=== PATIENT | male | born 1985 | race Caucasian/White ===

== ENCOUNTER 2016-09-26 19:04 | Inpatient (IN) | payer OTHER ==
[~2016-09-26] VITALS: Ht 185.4 cm; Wt 114.6 kg
[2016-09-26] VITALS (70 sets, daily range): BP systolic 136; BP diastolic 90; PULSE 103; TEMP 98; O2SAT 83–99
[2016-09-26] MEDS ORDERED: PRILOSEC 20MG20 MG PO (19:12)
[2016-09-26] MEDS ORDERED: EFFE25TA PO (19:12)
[2016-09-26] MEDS ORDERED: DESYREL 50MG50 MG PO (19:12)
[2016-09-26 19:22] LABS: BASO # 0.1 (0.0-0.2); BASO % 0.9 % (0.0-2.0); EOS # 0.1 (0.0-0.7); GRAN % 52.4 % (42.2-75.2); HEMATOCRIT 48.8 % (42.0-52.0); HEMOGLOBIN 17.3 g/dl (13.5-18.0); LYMPH # 3.1 (1.2-3.4); LYMPH % 40.6 % (20.0-51.0); MEAN CELL VOLUME 82 fl (80.0-100.0); MEAN CORPUSCULAR HEMOGLOBIN 29 pg (27.0-31.0); MEAN CORPUSCULAR HGB CONC 36 g/dl (33.0-37.0); MEAN PLATELET VOLUME 9.2 fl (7.4-10.4); MONO # 0.4 (0.1-0.6); MONO % 4.8 % (1.7-9.3); PLATELET COUNT 309 K/mm3 (130-400); RED BLOOD COUNT 5.93 M/mm3 (4.20-5.60); REDCELL DISTRIBUTION WIDTH-CV 12.6 % (11.5-14.5); WHITE BLOOD COUNT 7.7 K/mm3 (4.8-10.8)
[2016-09-26 19:39] LABS: ADJUSTED CALCIUM 8.2 mg/dL (8.4-10.2); ALBUMIN 4.4 gm/dL (3.5-5.0); BILIRUBIN,TOTAL 0.9 mg/dL (0.0-1.0); CALCIUM 8.5 mg/dL (8.4-10.2); CREATININE, serum 0.89 mg/dL (0.66-1.25); POTASSIUM 3.8 mmol/L (3.4-5.0); TOTAL PROTEIN 8.1 gm/dL (6.4-8.2)
[2016-09-26 22:48] LABS: INR 1.1 (0.8-3.0); PROTHROMBIN TIME 11.9 SECONDS (9.7-12.8)
[2016-09-26 22:51] LABS: PARTIAL THROMBOPLASTIN TIME 34.1 SECONDS (26.0-37.0)
[2016-09-27] VITALS (843 sets, daily range): BP systolic 118–153; BP diastolic 66–88; PULSE 51–119; TEMP 97.5–98.2; O2SAT 86–100
[2016-09-27] MEDS ORDERED: MELAT3MGTAB PO (10:48)
[2016-09-27] MEDS ORDERED: PRILOSEC 20MG20 MG PO (10:49)
[2016-09-27] MEDS ORDERED: EFFEXOR XR75 MG/CAP PO (10:50)
[2016-09-27] MEDS ORDERED: WELLBUTRIN XL300 M1 PO (10:51)
[2016-09-27] MEDS ORDERED: BUSPAR DIVIDOSE15 MG PO (10:51)
[2016-09-27 15:20] LABS: PH 6 (5-8); SQUAMOUS EPITHELIAL None Seen /hpf; URINE APPEARANCE Clear; URINE BACTERIA None Seen /hpf; URINE BILIRUBIN Negative (NEGATIVE); URINE BLOOD Negative (NEGATIVE); URINE COLOR Yellow; URINE GLUCOSE Negative (NEGATIVE); URINE KETONE 1+ (NEGATIVE); URINE RBC 0-2 /hpf; URINE WBC 0-2 /hpf
[2016-09-27 15:25] LABS: AMPHETAMINE URINE NEGATIVE; BARBITURATES URINE NEGATIVE; BENZODIAZEPINES URINE POSITIVE; BUPRENORPHINE URINE NEGATIVE; METHADONE URINE NEGATIVE; OPIATES URINE NEGATIVE; OXYCODONE URINE NEGATIVE; PHENCYCLIDINE URINE NEGATIVE; PROPOXYPHENE URINE NEGATIVE; THC CANNABINOIDS URINE POSITIVE
[2016-09-28] VITALS (10 sets, daily range): BP systolic 109–156; BP diastolic 59–88; PULSE 52–82; TEMP 97.7–99.5
[2016-09-29] VITALS (10 sets, daily range): BP systolic 133–173; BP diastolic 67–97; PULSE 47–91; TEMP 97.6–98.4
[2016-09-29 07:35] LABS: ALBUMIN 3.3 gm/dL (3.5-5.0); BILIRUBIN,TOTAL 1.2 mg/dL (0.0-1.0); CALCIUM 8.4 mg/dL (8.4-10.2); CREATININE, serum 0.89 mg/dL (0.66-1.25); POTASSIUM 3.4 mmol/L (3.4-5.0); TOTAL PROTEIN 6.1 gm/dL (6.4-8.2)
[2016-09-30 02:02] VITALS: BP 133/65; PULSE 98; TEMP 97.6
[2016-09-30 04:15] VITALS: BP 140/63; PULSE 53; TEMP 98.1
[2016-09-30 06:01] VITALS: BP 137/70; PULSE 50; TEMP 98.2
[2016-09-30 08:49] VITALS: BP 169/103; PULSE 65; TEMP 97.8
[2016-09-30 10:03] VITALS: BP 180/102; PULSE 56
== END 2016-09-30 10:46 | disposition home or self-care (01) | DRG 897 ==
LOC: COL.ER 19:04 → ICU 21:41 → COL.ER 21:41 → ICU 21:41 → MEDICAL 09-27 09:45 → ICU 09-27 20:45 → MEDICAL 09-30 10:46
PROVIDERS: Emergency Medicine; Nurse Practitioner Family
DX: F10.129 Alcohol abuse with intoxication, unspecified (principal); F33.1 Major depressive disorder, recurrent, moderate; F43.10 Post-traumatic stress disorder, unspecified; F17.220 Nicotine dependence, chewing tobacco, uncomplicated; G47.00 Insomnia, unspecified; F41.9 Anxiety disorder, unspecified; Y90.6 Blood alcohol level of 120-199 mg/100 ml
CPT/HCPCS: 90791-AI; 99223-AI; 99233-AI; 99239; J1644; J2060; J7030

== ENCOUNTER 2016-12-07 19:34 | Inpatient (IN) | payer OTHER ==
[2016-12-07] VITALS (94 sets, daily range): BP systolic 151; BP diastolic 96; PULSE 102; TEMP 97.8; O2SAT 87–99
[~2016-12-07] VITALS: Ht 185.4 cm; Wt 115.3 kg
[~2016-12-07 19:34] MED LIST: BUSPAR DIVIDOSE15 MG PO; DESYREL 50MG50 MG PO; EFFE25TA PO; EFFEXOR XR75 MG/CAP PO; MELAT3MGTAB PO; PRILOSEC 20MG20 MG PO; WELLBUTRIN XL300 M1 PO
[2016-12-07 20:55] LABS: BASO # 0.1 (0.0-0.2); BASO % 0.6 % (0.0-2.0); EOS # 0.2 (0.0-0.7); EOS % 2.1 % (0-4.0); GRAN # 4.9 (1.4-6.5); GRAN % 50.7 % (42.2-75.2); LYMPH # 3.8 (1.2-3.4); LYMPH % 39.4 % (20.0-51.0); MEAN CELL VOLUME 81 fl (80.0-100.0); MEAN CORPUSCULAR HGB CONC 36 g/dl (33.0-37.0); MONO # 0.7 (0.1-0.6); PLATELET COUNT 427 K/mm3 (130-400); RED BLOOD COUNT 6.63 M/mm3 (4.20-5.60); REDCELL DISTRIBUTION WIDTH-CV 12.6 % (11.5-14.5); WHITE BLOOD COUNT 9.6 K/mm3 (4.8-10.8)
[2016-12-07 20:56] LABS: HEMATOCRIT 53.9 % (42.0-52.0); HEMOGLOBIN 19.3 g/dl (13.5-18.0); MEAN CORPUSCULAR HEMOGLOBIN 29 pg (27.0-31.0)
[2016-12-07 21:08] LABS: ACETAMINOPHEN < 10 ug/mL (10-30); ADJUSTED CALCIUM 8.4 mg/dL (8.4-10.2); ALANINE AMINOTRANSFERASE 57 U/L (21-72); ALBUMIN 4.6 gm/dL (3.5-5.0); ALKALINE PHOSPHATASE 110 U/L (50-136); ANION GAP 18 mmol/L (7-16); BILIRUBIN,TOTAL 0.8 mg/dL (0.0-1.0); BLOOD UREA NITROGEN 11 mg/dL (9-20); CALCIUM 8.9 mg/dL (8.4-10.2); CARBON DIOXIDE 23 mmol/L (22-30); CHLORIDE 104 mmol/L (98-107); CREATININE, serum 0.95 mg/dL (0.66-1.25); GLUCOSE 108 mg/dL (74-106); POTASSIUM 3.8 mmol/L (3.4-5.0); SALICYLATE < 1.0 mg/dL; SODIUM 145 mmol/L (137-145); TOTAL PROTEIN 8.5 gm/dL (6.4-8.2)
[2016-12-08] VITALS (877 sets, daily range): BP systolic 135–166; BP diastolic 72–96; PULSE 65–97; TEMP 97.2–98.4; O2SAT 82–100
[2016-12-08 04:35] LABS: BASO # 0.1 (0.0-0.2); BASO % 0.5 % (0.0-2.0); EOS # 0.3 (0.0-0.7); EOS % 2.3 % (0-4.0); GRAN # 6.5 (1.4-6.5); GRAN % 60.5 % (42.2-75.2); HEMATOCRIT 51.2 % (42.0-52.0); HEMOGLOBIN 17.8 g/dl (13.5-18.0); LYMPH # 3.3 (1.2-3.4); LYMPH % 30.5 % (20.0-51.0); MEAN CELL VOLUME 83 fl (80.0-100.0); MEAN CORPUSCULAR HEMOGLOBIN 29 pg (27.0-31.0); MEAN CORPUSCULAR HGB CONC 35 g/dl (33.0-37.0); MEAN PLATELET VOLUME 9.1 fl (7.4-10.4); MONO # 0.6 (0.1-0.6); MONO % 5.8 % (1.7-9.3); PLATELET COUNT 332 K/mm3 (130-400); RED BLOOD COUNT 6.14 M/mm3 (4.20-5.60); REDCELL DISTRIBUTION WIDTH-CV 12.7 % (11.5-14.5); WHITE BLOOD COUNT 10.8 K/mm3 (4.8-10.8)
[2016-12-08 05:20] LABS: CALCIUM 8.1 mg/dL (8.4-10.2); CREATININE, serum 0.95 mg/dL (0.66-1.25); POTASSIUM 4.3 mmol/L (3.4-5.0)
[2016-12-08 10:55] LABS: CALCIUM 8.6 mg/dL (8.4-10.2); CREATININE, serum 0.88 mg/dL (0.66-1.25)
[2016-12-09] VITALS (608 sets, daily range): BP systolic 127–185; BP diastolic 77–99; PULSE 55–94; TEMP 97.5–98.3; O2SAT 65–100
[2016-12-10 02:57] VITALS: BP 154/75; PULSE 75; TEMP 98.4
[2016-12-10 08:56] VITALS: BP 154/87; PULSE 106; TEMP 97.9
[2016-12-10 12:07] VITALS: BP 151/82; PULSE 67; TEMP 98.7
[2016-12-10] MEDS ORDERED: EFFEXOR XR75 MG/CAP PO (13:05)
[2016-12-10] MEDS ORDERED: FOLIC ACID 11 MG/TA1 PO (13:07)
[2016-12-10] MEDS ORDERED: PROTONIX40 MG/Pack PO (13:07)
[2016-12-10] MEDS ORDERED: LIBRIUM 10M10 MG/CAP PO (13:07)
[2016-12-10] MEDS ORDERED: THIAMINE 1100 MG/TAB PO (13:08)
[2016-12-10 13:46] LABS: ADJUSTED CALCIUM 9.2 mg/dL (8.4-10.2); ALBUMIN 4.2 gm/dL (3.5-5.0); CALCIUM 9.4 mg/dL (8.4-10.2); CREATININE, serum 0.82 mg/dL (0.66-1.25); POTASSIUM 3.9 mmol/L (3.4-5.0); TOTAL PROTEIN 7.6 gm/dL (6.4-8.2)
== END 2016-12-10 16:00 | disposition home or self-care (01) | DRG 897 ==
LOC: COL.ER 19:34 → MEDICAL 21:39 → ICU 21:39 → MEDICAL 12-09 17:06
PROVIDERS: Emergency Medicine; Family Medicine; Internal Medicine; Internal Medicine Cardiovascular Disease
DX: F10.239 Alcohol dependence with withdrawal, unspecified (principal); F33.1 Major depressive disorder, recurrent, moderate; F10.229 Alcohol dependence with intoxication, unspecified; Y90.1 Blood alcohol level of 20-39 mg/100 ml; F17.220 Nicotine dependence, chewing tobacco, uncomplicated; F43.10 Post-traumatic stress disorder, unspecified
CPT/HCPCS: 90791-AI; 99222-AI; 99232-AI; 99239; G0378; J2060; J3411; J3475; J7030